=== PATIENT | male | born 1975 | race African-American/Black ===

== ENCOUNTER 2018-03-07 06:13 | Inpatient (IN) | payer OTHER, MEDICAID ==
[~2018-03-07] VITALS: Ht 167.6 cm; Wt 77.0 kg
[2018-03-07 06:13] VITALS: O2SAT 100
[2018-03-07] MEDS ORDERED: MORPHINE SULFATE 4 MG/ML INJ ONE ×2 (06:18→06:23)
[2018-03-07] MEDS ORDERED: SODIUM CHLOR 0.9% 1000 ML INJ 1,000 ML IV SCH (06:35)
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
[2018-03-07 06:44] LABS: AUTOMATED NEUTROPHIL # 4.1 TH/MM3 (1.8-7.7); BASOPHIL % 0.5 % (0.0-2.0); EOSINOPHIL % 0.2 % (0.0-4.0); HEMATOCRIT 38.2 % (39.0-51.0); LYMPH % 35.3 % (9.0-44.0); LYMPHOCYTE # 2.6 TH/MM3 (1.0-4.8); MEAN CELL VOLUME 91.8 FL (80.0-100.0); MEAN CORPUSCULAR HEMOGLOBIN 31.1 PG (27.0-34.0); MEAN CORPUSCULAR HGB CONC 33.9 % (32.0-36.0); MEAN PLATELET VOLUME 9.4 FL (7.0-11.0); MONO % 8.1 % (0.0-8.0); MONOCYTE # 0.6 TH/MM3 (0-0.9); NEUT % 55.9 % (16.0-70.0); PLATELET COUNT 255 TH/MM3 (150-450); RED BLOOD COUNT 4.16 MIL/MM3 (4.50-5.90); RED CELL DISTRIBUTION WIDTH 12.9 % (11.6-17.2); WHITE BLOOD COUNT 7.4 TH/MM3 (4.0-11.0)
[2018-03-07] MEDS ORDERED: MORPHINE SULFATE 4 MG/ML INJ IV PUSH ONE ×2 (06:45)
[2018-03-07] MEDS ORDERED: ACETAMINOPHEN/HYDROcodone 325 MG/5 MG TAB PO PRN ×2 (06:45)
[2018-03-07] MEDS ORDERED: ENALAPRILAT 1.25 MG/ML VIAL IV PUSH PRN (06:45)
[2018-03-07] MEDS ORDERED: MORPHINE SULFATE 4 MG/ML INJ IV PUSH PRN ×2 (06:45→17:15)
[2018-03-07] MEDS ORDERED: ONDANSETRON HCL 4 MG/2 ML VIAL IV PUSH PRN (06:45)
[2018-03-07] MEDS ORDERED: MAGNESIUM HYDROXIDE SUSP 30 ML CUP PO PRN (06:45)
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
[2018-03-07] MEDS ORDERED: IOHEXOL 350 MG/ML 10 ML VIAL (for RAD DIAG) IVCONTRAST ONE (06:52)
[2018-03-07 06:53] LABS: INTERNATIONAL NORMALIZED RATIO 1.1 RATIO; PROTHROMBIN TIME - PATIENT 11.5 SEC (9.8-11.6)
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
[2018-03-07 07:12] VITALS: RESP 20; O2SAT 100
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
[2018-03-07 07:27] VITALS: BP 122/67; PULSE 79; RESP 20; TEMP 98.3; O2SAT 100
[2018-03-07] MEDS ORDERED: CARB100C CHEW ×2 (07:45)
[2018-03-07] MEDS ORDERED: BENZ0.5T PO (07:45)
[2018-03-07] MEDS ORDERED: TRAZ50TA12 PO (07:45)
[2018-03-07] MEDS ORDERED: LURA80 PO (07:45)
[2018-03-07] MEDS ORDERED: LOXA50CA PO ×2 (07:45)
[2018-03-07] MEDS: MULTIVITAMIN INJ 10 ML, THIAMINE INJ 100 MG, FOLIC ACID INJ 1 MG in SODIUM CHLORID 0.9%... IV SCH (09:54)
[2018-03-07] MEDS: PANTOPRAZOLE SODIUM 40 MG VIAL IVP SCH (09:54)
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
[2018-03-07 10:02] VITALS: BP 119/82; PULSE 90; RESP 20; O2SAT 100
[2018-03-07 11:43] VITALS: BP 127/83; PULSE 85; RESP 20; O2SAT 98
[2018-03-07] MEDS ORDERED: LACTATED RINGER'S 1000 ML INJ 1,000 ML IV ONE (12:00)
[2018-03-07] MEDS ORDERED: NEOSTIGMINE 5 MG/5 ML SYRINGE IV PUSH ONE (12:00)
[2018-03-07] MEDS ORDERED: ROCURONIUM INJ 50 MG/5 ML SYRINGE IV PUSH ONE (12:00)
[2018-03-07] MEDS ORDERED: GLYCOPYRROLATE 1 MG/5 ML SYRINGE IV PUSH ONE (12:00)
[2018-03-07] MEDS ORDERED: PROPOFOL 200 MG/20 ML AMP IV ONE (12:00)
[2018-03-07] MEDS ORDERED: SUCCINYLCHOLINE CHLORIDE 200 MG/10 ML VIAL IV ONE (12:00)
[2018-03-07] MEDS ORDERED: LIDOCAINE HCL 1% PF 5 ML SYRINGE OTHER ONE (12:00)
[2018-03-07] MEDS ORDERED: ONDANSETRON HCL 4 MG/2 ML VIAL IV ONE (12:00)
[2018-03-07] MEDS ORDERED: ACETAMINOPHEN 1000 MG/100 ML 100 ML IV ONE (14:22)
[2018-03-07] MEDS ORDERED: KETAMINE HCL 50 MG/5 ML SYRINGE ONE (14:23)
[2018-03-07] MEDS ORDERED: ceFAZolin INJ 1,000 MG VIAL ONE (14:31)
[2018-03-07] MEDS ORDERED: SODIUM CHLOR 0.9% 250 ML INJ 250 ML ONE (14:31)
[2018-03-07] MEDS ORDERED: VANCOMYCIN HCL 1000 MG VIAL ONE (14:31)
[2018-03-07] MEDS ORDERED: GENTAMICIN SULFATE 80 MG/2 ML VIAL ONE (14:31)
[2018-03-07] MEDS ORDERED: MIDAZOLAM HCL 2 MG/2 ML VIAL ONE (15:24)
--- NOTE | 2018-03-07 17:09 | PD.OP ---
cc: Donavon Phoenix MD Operative Report Date of Surgery: Mar 07, 2018 Preoperative Diagnosis: Right tibia fracture, segmental right femur fracture Postoperative Diagnosis: Procedure: Reduction and intramedullary fixation right tibia, reduction and retrograde intramedullary nail fixation right femur Anesthesia: Gen. Surgeon: Donavon Phoenix Division Controller(s): Amari Mantilla PA-C The surgical procedure was assisted by my physician tmd teacher assistant. My P.A. presence was necessary throughout this case for the manipulation and positioning of the surgical extremity. My P.A. was assisting me throughout the duration of this procedure. The skill set of a physician tmd teacher assistant was medically necessary to complete this procedure. During the surgical case the surgical asst was working at the back table and the physician tmd teacher assistant was directly assisting me. Operation and Findings: Implants: ITS [9]mm tibial nail, Biomet 10.5 mm x 420 mm retrograde femoral nail Plan of activity: Toe-touch weightbearing Patient was seen and examined preoperatively. An informed consent was obtained from patient after detailed discussion of risk and benefits. Risks of surgery include bleeding, infection, painful hardware, nonunion, malunion, leg length discrepancy, need for hardware removal, and medical complications associated with anesthesia including blood clots, stroke, heart attack, and were discussed. Operative site was marked. Patient was brought to the operating room placed on or table. Patient received IV antibiotics and was given IV sedation GETA. Operative leg was prepped with alcohol Hibiclens and draped in usual sterile fashion. Timeout procedure was performed Procedure began with reduction of fracture. 2 small incisions were made around the fracture site. Traction was applied. Fracture was reduced. There was comminution of the fracture. The fracture reduced and excellent alignment was achieved. Next a 3 cm incision was made proximal to the patella. Quadriceps tendon was split in line with fibers. Cannulas were placed in the patellofemoral joint to protect the articular surface at all times. A guidepin was placed into the tibia and advanced in the tibial canal. Fluoroscopy was used to confirm appropriate guidepin placement. An opening reamer was used to open the tibial canal. A ball-tipped guidewire was advanced down the tibial canal. Guidepin was passed across the fracture site into the center of the distal tibia. Fluoroscopy confirmed guidepin placement. The nail length was now measured. The fracture was now held in a reduced position and the canal was reamed. The canal was reamed up to appropriate size. The tibial nail was now selected and then attached to the insertion handle. The nail was now placed over the guidepin. Next the nail was fully seated. Using perfect [place] technique 2 distal interlocking screws were placed. Using the insertion handle as a guide 2 proximal interlocking screws were placed. Fluoroscopy confirmed excellent of fracture with well-placed hardware. Incisions and the knee joint were thoroughly irrigated with sterile saline. Fascia was closed with #1 Vicryl, subcutaneous tissues closed with 3-0 Vicryl and skin was closed with neeraj. Attention was now turned towards the right femur. This was a segmental fracture with a supracondylar fracture as well as a proximal shaft fracture. Procedure began with reduction of fracture. Traction was applied. The leg was manipulated to achieve reduction. Good reduction was achieved. Fluoroscopy was used to confirm reduction. A two inch incision was made over the anterior knee. A medial arthrotomy was created. Guidepin was placed into the distal femur and advanced into the femoral canal. Fluoroscopy confirmed appropriate guidepin placement. A opening reamer was placed over the guidepin. A long ball tipped guide pin was now placed down the femoral canal into the center of the proximal femur. The nail length was now measured. Fluoroscopy confirmed appropriate guidepin placement. The nail length was extended beyond the lesser trochanter secondary to the proximal nature of the fracture. Flexible reamers were now passed over the guidepin to ream the intramedullary canal. The Biomet nail was attached to the insertion handle. Nail was now placed over the guidepin into the femoral canal. Fluoroscopy confirmed appropriate nail placement. A small percutaneous incisions were made over the lateral thigh. Cannulas were placed through the insertion handle down to the femur. Using the insertion handle as a guide the distal interlocking screw holes were predrilled and screw lengths were measured. Appropriate length screws was now placed. Next, using perfect [place] technique two proximal interlocking screws were placed. Screw holes were predrilled and screw lengths were measured. Final fluoroscopy revealed well aligned fracture with well-placed hardware. Incision was closed with 0 Vicryl, 3-0 Vicryl and neeraj. Sterile dressings were applied. Patient was awakened and transferred to recovery room. Donavon Phoenix MD Mar 07, 2018 17:09
[2018-03-07] MEDS ORDERED: diphenhydrAMINE HCL 25 MG CAP PO PRN (17:15)
[2018-03-07] MEDS ORDERED: NALOXONE HCL 0.4 MG/ML AMP IV PUSH PRN (17:15)
[2018-03-07] MEDS ORDERED: NURSING INFORMATION XX PRN (17:15)
[2018-03-07] MEDS ORDERED: Post-op Orders (for Pharmacy) XX ONE (17:15)
[2018-03-07] MEDS ORDERED: *MEPERIDINE 25 MG INJ VIAL PERIprocedural Use ONLY ONE (17:43)
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
[2018-03-07 18:45] VITALS: BP 134/85; PULSE 81; RESP 17; TEMP 97.1; O2SAT 98
[2018-03-07] MEDS ORDERED: ceFAZolin 2 GM PREMIX 50 ML IV SCH (19:00)
[2018-03-07] MEDS ORDERED: DO NOT ADM ANY ANTICOAGULANT DRUGS PRN (19:00)
--- NOTE | 2018-03-07 19:38 | RADRPT ---
EXAM DATE/TIME: 03/07/2018 15:50 [facility] COMPARISON: TIBIA/FIBULA RIGHT ( 1 VW), March 07, 2018, 6:14. INDICATIONS : ORIF of the right tibia/fibula. MEDICAL HISTORY : Non-responsive SURGICAL HISTORY : Non-responsive ENCOUNTER: Subsequent ACUITY: 1 day PAIN SCORE: Non-responsive. LOCATION: Right tibia/fibula FINDINGS: 5 coned down AP and lateral views of the right tibia and fibula were obtained and demonstrate placeme nt of intramedullary nohelia transfixing the mid tibial fracture which is in anatomic alignment. The more proximal fibular fracture is again noted with approximately one shaft width of lateral displacement of the distal fibular fragment. CONCLUSION: Status post open rigid internal fixation. Andrade Pavon MD on March 07, 2018 at 19:34 Board Certified Radiologist. This report was verified electronically.
--- NOTE | 2018-03-07 19:40 | RADRPT ---
EXAM DATE/TIME: 03/07/2018 15:50 [facility] COMPARISON: FEMUR RIGHT (1 VW), March 07, 2018, 6:14. INDICATIONS : ORIF of the right femur. MEDICAL HISTORY : Non-responsive SURGICAL HISTORY : Non-responsive ENCOUNTER: Initial ACUITY: 1 day PAIN SCORE: Non-responsive. LOCATION: Right femur FINDINGS: 6 coned-down AP and lateral views of the femur were obtained using a matrix camera and demonstrate pl acement of an intramedullary nohelia transfixing the comminuted proximal to mid femur fracture. The fract ure fragments are in near-anatomic alignment. The nondisplaced distal femur fracture remains in anato rajan alignment. There is adjacent soft tissue prominence. CONCLUSION: Status post open rigid internal fixation. Andrade Pavon MD on March 07, 2018 at 19:35 Board Certified Radiologist. This report was verified electronically.
[2018-03-07] MEDS: CEFAZOLIN INJ 2,000 MG in SODIUM CHLORIDE 0.9% INJ 100 ML IV SCH (23:33)
[2018-03-08 00:30] VITALS: BP 128/77; PULSE 96; RESP 17; TEMP 99.8; O2SAT 97
[2018-03-08] MEDS: ACETAMINOPHEN/HYDROcodone 325 MG/10 MG TAB PO PRN ×6 (02:07→21:03)
[2018-03-08 04:00] LABS: AUTOMATED NEUTROPHIL # 6.1 TH/MM3 (1.8-7.7); BASOPHIL % 0.2 % (0.0-2.0); HEMATOCRIT 27.7 % (39.0-51.0); HEMOGLOBIN 9.8 GM/DL (13.0-17.0); LYMPH % 18.3 % (9.0-44.0); LYMPHOCYTE # 1.5 TH/MM3 (1.0-4.8); MEAN CELL VOLUME 90.7 FL (80.0-100.0); MEAN CORPUSCULAR HGB CONC 35.3 % (32.0-36.0); MEAN PLATELET VOLUME 9.2 FL (7.0-11.0); MONO % 7.7 % (0.0-8.0); MONOCYTE # 0.6 TH/MM3 (0-0.9); NEUT % 73.8 % (16.0-70.0); PLATELET COUNT 170 TH/MM3 (150-450); RED BLOOD COUNT 3.05 MIL/MM3 (4.50-5.90); RED CELL DISTRIBUTION WIDTH 12.5 % (11.6-17.2); WHITE BLOOD COUNT 8.3 TH/MM3 (4.0-11.0)
[2018-03-08 04:24] LABS: ALBUMIN 2.9 GM/DL (3.4-5.0); BICARBONATE 23.8 MEQ/L (21.0-32.0); CALCIUM 7.4 MG/DL (8.5-10.1); CALCIUM-PROTEIN CORRECTED 8.1 MG/DL (8.5-10.1); CREATININE 1.18 MG/DL (0.60-1.30); TOTAL BILIRUBIN ADULT 0.6 MG/DL (0.2-1.0); TOTAL PROTEIN 5.8 GM/DL (6.4-8.2)
[2018-03-08] MEDS: VANCOMYCIN INJ 1,000 MG in SODIUM CHLOR 0.9% 250 ML INJ 250 ML IV SCH ×2 (04:28→15:57)
[2018-03-08 04:30] VITALS: BP 149/78; PULSE 99; RESP 17; TEMP 98.3; O2SAT 100
[2018-03-08] MEDS: LACTATED RINGER'S 1000 ML INJ 1,000 ML IV SCH ×2 (05:33→16:53)
[2018-03-08] MEDS ORDERED: POTASSIUM CHLORIDE 20 MEQ CONTROLLED RELEASE TAB PO ONE (07:45)
[2018-03-08] MEDS: CEFAZOLIN INJ 2,000 MG in SODIUM CHLORIDE 0.9% INJ 100 ML IV SCH ×2 (07:46→14:08)
[2018-03-08] MEDS: SODIUM CHLORIDE 0.9% FLUSH 10 ML FLUSH IV FLUSH PRN ×3 (08:28→15:56)
[2018-03-08] MEDS: CALCIUM/VITAMIN D 250 MG/125 U TAB PO SCH ×3 (08:28→16:51)
[2018-03-08] MEDS: PANTOPRAZOLE SODIUM 40 MG VIAL IVP SCH (08:28)
[2018-03-08] MEDS: FOLIC ACID 1 MG TAB PO SCH (08:28)
[2018-03-08 08:29] VITALS: BP 145/67; PULSE 100; RESP 18; TEMP 99.1; O2SAT 99
[2018-03-08] MEDS: CHOLECALCIFEROL (VIT D3) 1000 UNIT TAB PO SCH (08:29)
[2018-03-08] MEDS: MAGNESIUM HYDROXIDE SUSP 30 ML CUP PO SCH ×2 (08:29→21:19)
[2018-03-08] MEDS: DOCUSATE SODIUM 50 MG/SENNA 8.6 MG TAB PO SCH ×2 (08:29→21:03)
[2018-03-08] MEDS: THIAMINE HCL 100 MG TAB PO SCH (08:29)
[2018-03-08] MEDS: MULTIVITAMIN INJ 10 ML, THIAMINE INJ 100 MG, FOLIC ACID INJ 1 MG in SODIUM CHLORID 0.9%... IV SCH (08:33)
[2018-03-08] MEDS: ERGOCALCIFEROL (VIT D2) 50,000 UNIT CAP PO SCH (08:33)
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
[2018-03-08 11:58] VITALS: BP 126/78; PULSE 102; RESP 19; TEMP 99; O2SAT 100
[2018-03-08] MEDS ORDERED: MAGN30S PO (13:40)
[2018-03-08] MEDS ORDERED: PERI PO (13:40)
[2018-03-08] MEDS ORDERED: WALKER WHEELS/F1 MIS (13:43)
--- NOTE | 2018-03-08 13:53 | HHI.FF ---
Face to Face Verification Diagnosis: (1) Tibia/fibula fracture (2) Femur fracture, right Physical Therapy Order: Evaluate and Treat, Improve ambulation, Strength and gait training Home Health Nursing Order: Medical education Signs/symptoms of disease process Medication education-adverse effect Nursing assessment with vital signs I have seen patient Bladimir Martins on 03/08/18. My clinical findings support the need for the requested home health care services because: Ltd mobility - disease progression Deconditioned w/ increased weakness Limited ability to care for self High risk of falls I certify that my clinical findings support that this patient is homebound because: Post-op weakness Unsteady gait/balance Unsafe to leave home unassisted [id number] bed/chair Unable to use public transportation Ashley Martinez Mar 08, 2018 13:53
[2018-03-08] MEDS: BENZTROPINE MESYLATE 2 MG TAB PO SCH ×2 (14:08→21:03)
[2018-03-08 15:43] VITALS: BP 124/70; PULSE 94; RESP 16; TEMP 99.8; O2SAT 99
[2018-03-08] MEDS: ENOXAPARIN SODIUM 40 MG/0.4 ML SYRINGE SQ SCH (15:56)
[2018-03-08] MEDS ORDERED: LOXAPINE 25 MG CAP PO SCH ×2 (16:00→21:00)
[2018-03-08] MEDS: LOXAPINE 5 MG CAP PO SCH (16:51)
[2018-03-08] MEDS ORDERED: POTASSIUM CHLORIDE 10 MEQ CONTROLLED RELEASE TAB PO ONE (18:00)
[2018-03-08 20:00] VITALS: BP 130/80; PULSE 112; RESP 18; TEMP 99.7; O2SAT 97
[2018-03-08] MEDS: traZODone HCL 50 MG TAB PO SCH (21:03)
[2018-03-08] MEDS: LURASIDONE 80 MG TAB PO SCH (21:05)
--- NOTE | 2018-03-08 21:37 | EKG ---
Date Performed: 03/07/2018 Time Performed: 13:53:02 PTAGE: 89 years EKG: Sinus rhythm NORMAL ECG INTERPRETATION BASED ON A DEFAULT AGE OF 41 YEARS NO PREVIOUS TRACING DOCTOR: Ricky Lucas Interpretating Date/Time 03/08/2018 21:35:17
[2018-03-08] MEDS ORDERED: LOXAPINE 5 MG CAP PO SCH (21:45)
[2018-03-09] VITALS: BP 133/69; PULSE 112; RESP 18; TEMP 99.9; O2SAT 97
[2018-03-09] MEDS: CEFAZOLIN INJ 2,000 MG in SODIUM CHLORIDE 0.9% INJ 100 ML IV SCH ×3 (00:47→10:50)
[2018-03-09] MEDS: VANCOMYCIN INJ 1,000 MG in SODIUM CHLOR 0.9% 250 ML INJ 250 ML IV SCH (03:28)
[2018-03-09] MEDS: ACETAMINOPHEN/HYDROcodone 325 MG/10 MG TAB PO PRN ×5 (05:34→21:46)
[2018-03-09] MEDS: LACTATED RINGER'S 1000 ML INJ 1,000 ML IV SCH (05:35)
[2018-03-09 07:55] VITALS: BP 160/90; PULSE 105; RESP 17; TEMP 98.5; O2SAT 99
[2018-03-09] MEDS: PANTOPRAZOLE SODIUM 40 MG VIAL IVP SCH (08:00)
--- NOTE | 2018-03-09 08:35 | PD.ORT.PN ---
Subjective Subjective Remarks Resting comfortably. No new complaints pain is controlled Objective Vitals Vital Signs Date Time Temp Pulse Resp B/P (MAP) Pulse Ox O2 Delivery O2 Flow Rate FiO2 03/09/18 07:55 98.5 105 17 160/90 (113) 99 03/09/18 00:00 99.9 112 18 133/69 (90) 97 03/08/18 20:00 99.7 112 18 130/80 (97) 97 03/08/18 15:43 99.8 94 16 124/70 (88) 99 03/08/18 11:58 99.0 102 19 126/78 (94) 100 I/O 03/08/18 03/08/18 03/08/18 03/09/18 03/09/18 03/09/18 07:00 15:00 23:00 07:00 15:00 23:00 Intake Total 720 ml 600 ml 240 ml Output Total 825 ml 300 ml 250 ml Balance -105 ml 300 ml -250 ml 240 ml Intake Oral 720 ml 600 ml 240 ml Output Urine Total 825 ml 300 ml 250 ml # Voids 1 3 # Bowel Movements 0 0 Result Diagram: 03/08/18 0335 03/08/18 0335 Imaging Last 24 hours Impressions Pelvis X-Ray 03/07/18614 Signed Impressions: Service Date/Time: Wednesday, March 07, 2018 06:14 - CONCLUSION: No acute pelvic fracture. Onel Xie MD Head CT 03/07/18614 Signed Impressions: Service Date/Time: Wednesday, March 07, 2018 06:31 - CONCLUSION: No acute intracranial disease. Onel Xie MD Chest X-Ray 03/07/18614 Signed Impressions: Service Date/Time: Wednesday, March 07, 2018 06:14 - CONCLUSION: No acute disease. Onel Xie MD Chest CT 03/07/18614 Signed Impressions: Service Date/Time: Wednesday, March 07, 2018 06:31 - CONCLUSION: No acute thoracic injury. Onel Xie MD Cervical Spine CT 03/07/18614 Signed Impressions: Service Date/Time: Wednesday, March 07, 2018 06:31 - CONCLUSION: No fracture or subluxation. Onel Xie MD Abdomen/Pelvis CT 03/07/1815 Signed Impressions: Service Date/Time: Wednesday, March 07, 2018 06:31 - CONCLUSION: No abdominal visceral injury. Onel Xie MD Tibia/Fibula X-Ray 03/07/18 0000 Signed Impressions: Service Date/Time: Wednesday, March 07, 2018 06:14 - CONCLUSION: Tibia and fibular fractures. Onel Xie MD Femur X-Ray 03/07/18 0000 Signed Impressions: Service Date/Time: Wednesday, March 07, 2018 06:14 - CONCLUSION: Proximal femur fracture. Onel Xie MD Objective Remarks Right lower extremity: Clean dry dressings intact in both femur and tibia. Compartments are semisoft. Distally intact sensation with active dorsiflexion plantar flexion of foot. Intact distal pulses noted Assessment & Plan Assessment and Plan Right femur and tibia IM nail fixation POD 2 Nonweightbearing right lower extremity Daily dressing changes Elevation and ice to decrease swelling Case management for placement - homeless Lovenox incentive spirometry Andrade Crabtree Jr. Mar 09, 2018 08:35
[2018-03-09] MEDS: MULTIVITAMIN INJ 10 ML, THIAMINE INJ 100 MG, FOLIC ACID INJ 1 MG in SODIUM CHLORID 0.9%... IV SCH (09:00)
[2018-03-09] MEDS: FOLIC ACID 1 MG TAB PO SCH (09:04)
[2018-03-09] MEDS: BENZTROPINE MESYLATE 2 MG TAB PO SCH ×2 (09:04→21:47)
[2018-03-09] MEDS: MAGNESIUM HYDROXIDE SUSP 30 ML CUP PO SCH ×2 (09:04→21:47)
[2018-03-09] MEDS: DOCUSATE SODIUM 50 MG/SENNA 8.6 MG TAB PO SCH ×2 (09:05→21:47)
[2018-03-09] MEDS: CHOLECALCIFEROL (VIT D3) 1000 UNIT TAB PO SCH (09:05)
[2018-03-09] MEDS: CALCIUM/VITAMIN D 250 MG/125 U TAB PO SCH ×3 (09:05→17:04)
[2018-03-09] MEDS: THIAMINE HCL 100 MG TAB PO SCH (09:05)
[2018-03-09 10:05] LABS: AUTOMATED NEUTROPHIL # 5.9 TH/MM3 (1.8-7.7); BASOPHIL % 0.2 % (0.0-2.0); EOSINOPHIL % 0.1 % (0.0-4.0); HEMATOCRIT 23.9 % (39.0-51.0); HEMOGLOBIN 8.3 GM/DL (13.0-17.0); LYMPH % 17.5 % (9.0-44.0); LYMPHOCYTE # 1.4 TH/MM3 (1.0-4.8); MEAN CELL VOLUME 92.5 FL (80.0-100.0); MEAN CORPUSCULAR HEMOGLOBIN 32.1 PG (27.0-34.0); MEAN CORPUSCULAR HGB CONC 34.7 % (32.0-36.0); MEAN PLATELET VOLUME 9.8 FL (7.0-11.0); MONOCYTE # 0.8 TH/MM3 (0-0.9); NEUT % 72.2 % (16.0-70.0); PLATELET COUNT 142 TH/MM3 (150-450); RED BLOOD COUNT 2.59 MIL/MM3 (4.50-5.90); RED CELL DISTRIBUTION WIDTH 12.9 % (11.6-17.2); WHITE BLOOD COUNT 8.2 TH/MM3 (4.0-11.0)
[2018-03-09 10:15] LABS: BICARBONATE 26.7 MEQ/L (21.0-32.0); CALCIUM 7.9 MG/DL (8.5-10.1); CREATININE 1.01 MG/DL (0.60-1.30)
[2018-03-09 11:34] VITALS: BP 117/67; PULSE 110; RESP 18; TEMP 98.6; O2SAT 97
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
[2018-03-09] MEDS ORDERED: CEPHALEXIN MONOHYDRATE 250 MG CAP PO ONE (13:00)
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
[2018-03-09] MEDS ORDERED: BISACODYL 10 MG SUPP RECTAL ONE (13:30)
[2018-03-09] MEDS: LOXAPINE 5 MG CAP PO SCH (15:35)
[2018-03-09] MEDS: ENOXAPARIN SODIUM 40 MG/0.4 ML SYRINGE SQ SCH (15:40)
[2018-03-09 16:09] VITALS: BP 157/83; PULSE 107; RESP 19; TEMP 98.7; O2SAT 96
[2018-03-09 20:00] VITALS: BP 132/89; PULSE 120; RESP 18; TEMP 99.7; O2SAT 100
[2018-03-09] MEDS ORDERED: LOXAPINE 25 MG CAP PO SCH (21:00)
[2018-03-09] MEDS: FAMOTIDINE 20 MG TAB PO SCH (21:47)
[2018-03-09] MEDS: traZODone HCL 50 MG TAB PO SCH (21:47)
[2018-03-09] MEDS: LURASIDONE 80 MG TAB PO SCH (21:47)
[2018-03-10] VITALS (10 sets, daily range): BP systolic 113–144; BP diastolic 56–88; PULSE 94–111; RESP 16–18; TEMP 98.2–99.8; O2SAT 96–100
[2018-03-10 06:28] LABS: BASOPHIL % 0.4 % (0.0-2.0); EOSINOPHIL % 0.1 % (0.0-4.0); LYMPH % 22.8 % (9.0-44.0); LYMPHOCYTE # 1.7 TH/MM3 (1.0-4.8); MEAN CELL VOLUME 91.9 FL (80.0-100.0); MEAN CORPUSCULAR HEMOGLOBIN 31.5 PG (27.0-34.0); MEAN CORPUSCULAR HGB CONC 34.3 % (32.0-36.0); MEAN PLATELET VOLUME 9.4 FL (7.0-11.0); MONO % 7.4 % (0.0-8.0); MONOCYTE # 0.5 TH/MM3 (0-0.9); NEUT % 69.3 % (16.0-70.0); PLATELET COUNT 143 TH/MM3 (150-450); RED BLOOD COUNT 2.21 MIL/MM3 (4.50-5.90); RED CELL DISTRIBUTION WIDTH 12.5 % (11.6-17.2); WHITE BLOOD COUNT 7.3 TH/MM3 (4.0-11.0)
--- NOTE | 2018-03-10 06:50 | PD.ORT.PN ---
Subjective Subjective Remarks Resting comfortably. No new complaints pain is controlled Objective Vitals Vital Signs Date Time Temp Pulse Resp B/P (MAP) Pulse Ox O2 Delivery O2 Flow Rate FiO2 03/10/18 00:00 99.3 106 18 119/69 (86) 97 03/09/18 20:00 99.7 120 18 132/89 (103) 100 03/09/18 16:09 98.7 107 19 157/83 (107) 96 03/09/18 11:34 98.6 110 18 117/67 (84) 97 03/09/18 07:55 98.5 105 17 160/90 (113) 99 I/O 03/09/18 03/09/18 03/09/18 03/10/18 03/10/18 03/10/18 07:00 15:00 23:00 07:00 15:00 23:00 Intake Total 240 ml 1300 ml 480 ml Output Total 900 ml 800 ml Balance 240 ml 400 ml -320 ml Intake Oral 240 ml 1300 ml 480 ml Output Urine Total 900 ml 800 ml # Voids 3 # Bowel Movements 0 0 0 Result Diagram: 03/09/18 0846 03/09/18 0846 Imaging Last 24 hours Impressions Pelvis X-Ray 03/07/18614 Signed Impressions: Service Date/Time: Wednesday, March 07, 2018 06:14 - CONCLUSION: No acute pelvic fracture. Onel Xie MD Head CT 03/07/18614 Signed Impressions: Service Date/Time: Wednesday, March 07, 2018 06:31 - CONCLUSION: No acute intracranial disease. Onel Xie MD Chest X-Ray 03/07/18614 Signed Impressions: Service Date/Time: Wednesday, March 07, 2018 06:14 - CONCLUSION: No acute disease. Onel Xie MD Chest CT 03/07/18614 Signed Impressions: Service Date/Time: Wednesday, March 07, 2018 06:31 - CONCLUSION: No acute thoracic injury. Onel Xie MD Cervical Spine CT 03/07/18614 Signed Impressions: Service Date/Time: Wednesday, March 07, 2018 06:31 - CONCLUSION: No fracture or subluxation. Onel Xie MD Abdomen/Pelvis CT 03/07/18614 Signed Impressions: Service Date/Time: Wednesday, March 07, 2018 06:31 - CONCLUSION: No abdominal visceral injury. Onel Xie MD Tibia/Fibula X-Ray 03/07/18 0000 Signed Impressions: Service Date/Time: Wednesday, March 07, 2018 06:14 - CONCLUSION: Tibia and fibular fractures. Onel Xie MD Femur X-Ray 03/07/18 0000 Signed Impressions: Service Date/Time: Wednesday, March 07, 2018 06:14 - CONCLUSION: Proximal femur fracture. Onel Xie MD Objective Remarks Right lower extremity: Clean dry dressings intact in both femur and tibia. Compartments are semisoft. Distally intact sensation with active dorsiflexion plantar flexion of foot. Intact distal pulses noted Assessment & Plan Assessment and Plan Right femur and tibia IM nail fixation POD 3 Nonweightbearing right lower extremity Daily dressing changes Elevation and ice to decrease swelling Case management for placement - homeless Lovenox incentive spirometry Andrade Crabtree Jr. Mar 10, 2018 06:50
[2018-03-10 06:52] LABS: BICARBONATE 30.9 MEQ/L (21.0-32.0); CALCIUM 7.8 MG/DL (8.5-10.1); CREATININE 0.99 MG/DL (0.60-1.30)
[2018-03-10 06:59] LABS: HEMATOCRIT 20.3 % (39.0-51.0)
[2018-03-10] MEDS ORDERED: SODIUM CHLOR 0.9% 250 ML INJ 250 ML IV ONE (07:15)
[2018-03-10] MEDS ORDERED: PANTOPRAZOLE SOD 40 MG DELAYED RELEASE TAB PO SCH (08:00)
[2018-03-10] MEDS: DOCUSATE SODIUM 50 MG/SENNA 8.6 MG TAB PO SCH ×2 (08:39→21:51)
[2018-03-10] MEDS: CALCIUM/VITAMIN D 250 MG/125 U TAB PO SCH ×3 (08:39→17:56)
[2018-03-10] MEDS: FOLIC ACID 1 MG TAB PO SCH (08:39)
[2018-03-10] MEDS: BENZTROPINE MESYLATE 2 MG TAB PO SCH ×2 (08:39→21:48)
[2018-03-10] MEDS: FAMOTIDINE 20 MG TAB PO SCH ×2 (08:40→21:48)
[2018-03-10] MEDS: MULTIVITAMIN TAB PO SCH (08:40)
[2018-03-10] MEDS: CHOLECALCIFEROL (VIT D3) 1000 UNIT TAB PO SCH (08:40)
[2018-03-10] MEDS: ACETAMINOPHEN/HYDROcodone 325 MG/10 MG TAB PO PRN ×2 (08:41→18:01)
[2018-03-10] MEDS: MAGNESIUM HYDROXIDE SUSP 30 ML CUP PO SCH ×2 (09:00→21:51)
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
[2018-03-10] MEDS: ENOXAPARIN SODIUM 40 MG/0.4 ML SYRINGE SQ SCH (17:56)
[2018-03-10] MEDS: [UNRECOGNIZED DRUG - REMARK] PO SCH (17:57)
[2018-03-10] MEDS ORDERED: LOXAPINE 50 MG PO SCH (21:00)
[2018-03-10] MEDS: traZODone HCL 50 MG TAB PO SCH (21:48)
[2018-03-10] MEDS: LURASIDONE 80 MG TAB PO SCH (21:48)
[2018-03-10] MEDS: [UNRECOGNIZED DRUG - REMARK] PO SCH (21:50)
[2018-03-11] VITALS: BP 109/66; PULSE 96; RESP 16; TEMP 98.3; O2SAT 98
[2018-03-11 02:01] LABS: HEMATOCRIT 27.6 % (39.0-51.0); HEMOGLOBIN 9.5 GM/DL (13.0-17.0)
[2018-03-11] MEDS: ACETAMINOPHEN/HYDROcodone 325 MG/10 MG TAB PO PRN (05:31)
[2018-03-11 07:47] VITALS: BP 127/71; PULSE 83; RESP 18; TEMP 98.2; O2SAT 99
[2018-03-11] MEDS: CHOLECALCIFEROL (VIT D3) 1000 UNIT TAB PO SCH (09:13)
[2018-03-11] MEDS: FAMOTIDINE 20 MG TAB PO SCH ×2 (09:13→20:41)
[2018-03-11] MEDS: MULTIVITAMIN TAB PO SCH (09:13)
[2018-03-11] MEDS: BENZTROPINE MESYLATE 2 MG TAB PO SCH ×2 (09:13→20:42)
[2018-03-11] MEDS: CALCIUM/VITAMIN D 250 MG/125 U TAB PO SCH ×3 (09:13→17:20)
[2018-03-11] MEDS: FOLIC ACID 1 MG TAB PO SCH (09:13)
[2018-03-11] MEDS: DOCUSATE SODIUM 50 MG/SENNA 8.6 MG TAB PO SCH ×2 (09:13→20:40)
[2018-03-11] MEDS: MAGNESIUM HYDROXIDE SUSP 30 ML CUP PO SCH ×2 (09:14→20:39)
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
[2018-03-11 12:00] VITALS: BP 132/85; PULSE 93; RESP 18; TEMP 97.5; O2SAT 99
[2018-03-11 16:00] VITALS: BP 140/78; PULSE 95; RESP 18; TEMP 98.1; O2SAT 100
[2018-03-11] MEDS: [UNRECOGNIZED DRUG - REMARK] PO SCH (16:00)
[2018-03-11] MEDS: ENOXAPARIN SODIUM 40 MG/0.4 ML SYRINGE SQ SCH (17:20)
[2018-03-11 20:00] VITALS: BP 144/79; PULSE 105; RESP 18; TEMP 99.3; O2SAT 98
[2018-03-11] MEDS: LURASIDONE 80 MG TAB PO SCH (20:41)
[2018-03-11] MEDS: traZODone HCL 50 MG TAB PO SCH (20:41)
[2018-03-11] MEDS: [UNRECOGNIZED DRUG - REMARK] PO SCH (20:52)
[2018-03-12] VITALS: BP 144/82; PULSE 99; RESP 18; TEMP 99.9; O2SAT 97
[2018-03-12 08:00] VITALS: BP 107/57; PULSE 76; RESP 18; TEMP 97.9; O2SAT 99
[2018-03-12] MEDS: BENZTROPINE MESYLATE 2 MG TAB PO SCH ×2 (08:25→20:26)
[2018-03-12] MEDS: FOLIC ACID 1 MG TAB PO SCH (08:25)
[2018-03-12] MEDS: DOCUSATE SODIUM 50 MG/SENNA 8.6 MG TAB PO SCH ×2 (08:26→20:26)
[2018-03-12] MEDS: CHOLECALCIFEROL (VIT D3) 1000 UNIT TAB PO SCH (08:26)
[2018-03-12] MEDS: CALCIUM/VITAMIN D 250 MG/125 U TAB PO SCH ×3 (08:26→18:20)
[2018-03-12] MEDS: MULTIVITAMIN TAB PO SCH (08:26)
[2018-03-12] MEDS: FAMOTIDINE 20 MG TAB PO SCH ×2 (08:26→20:27)
[2018-03-12] MEDS: MAGNESIUM HYDROXIDE SUSP 30 ML CUP PO SCH ×2 (08:28→20:25)
[2018-03-12 11:51] VITALS: BP 131/72; PULSE 97; RESP 18; TEMP 98.1; O2SAT 100
[2018-03-12] MEDS: ENOXAPARIN SODIUM 40 MG/0.4 ML SYRINGE SQ SCH (14:39)
[2018-03-12] MEDS: [UNRECOGNIZED DRUG - REMARK] PO SCH (14:40)
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
[2018-03-12 16:00] VITALS: BP 134/78; PULSE 96; RESP 18; TEMP 97.8; O2SAT 99
[2018-03-12 20:00] VITALS: BP 124/69; PULSE 92; RESP 18; TEMP 98.8; O2SAT 96
[2018-03-12] MEDS: traZODone HCL 50 MG TAB PO SCH (20:26)
[2018-03-12] MEDS: LURASIDONE 80 MG TAB PO SCH (20:26)
[2018-03-12] MEDS: [UNRECOGNIZED DRUG - REMARK] PO SCH (20:35)
[2018-03-13] VITALS: BP 123/68; PULSE 93; RESP 18; TEMP 98.5; O2SAT 99
[2018-03-13 06:17] LABS: BASOPHIL % 0.4 % (0.0-2.0); EOSINOPHIL # 0.1 TH/MM3 (0-0.4); EOSINOPHIL % 0.9 % (0.0-4.0); HEMATOCRIT 28.6 % (39.0-51.0); HEMOGLOBIN 9.8 GM/DL (13.0-17.0); LYMPH % 34.9 % (9.0-44.0); MEAN CELL VOLUME 90.3 FL (80.0-100.0); MEAN CORPUSCULAR HEMOGLOBIN 31.1 PG (27.0-34.0); MEAN CORPUSCULAR HGB CONC 34.4 % (32.0-36.0); MEAN PLATELET VOLUME 8.5 FL (7.0-11.0); MONO % 12.6 % (0.0-8.0); MONOCYTE # 0.7 TH/MM3 (0-0.9); NEUT % 51.2 % (16.0-70.0); PLATELET COUNT 241 TH/MM3 (150-450); RED BLOOD COUNT 3.16 MIL/MM3 (4.50-5.90); RED CELL DISTRIBUTION WIDTH 14.2 % (11.6-17.2); WHITE BLOOD COUNT 5.9 TH/MM3 (4.0-11.0)
[2018-03-13 06:46] LABS: CALCIUM 8.5 MG/DL (8.5-10.1); CREATININE 0.95 MG/DL (0.60-1.30)
[2018-03-13 07:44] VITALS: BP 119/73; PULSE 78; RESP 19; TEMP 98.3; O2SAT 100
[2018-03-13] MEDS: MAGNESIUM HYDROXIDE SUSP 30 ML CUP PO SCH ×2 (08:13→20:50)
[2018-03-13] MEDS: CHOLECALCIFEROL (VIT D3) 1000 UNIT TAB PO SCH (08:13)
[2018-03-13] MEDS: FOLIC ACID 1 MG TAB PO SCH (08:13)
[2018-03-13] MEDS: MULTIVITAMIN TAB PO SCH (08:14)
[2018-03-13] MEDS: DOCUSATE SODIUM 50 MG/SENNA 8.6 MG TAB PO SCH ×2 (08:14→20:50)
[2018-03-13] MEDS: BENZTROPINE MESYLATE 2 MG TAB PO SCH ×2 (08:14→20:50)
[2018-03-13] MEDS: CALCIUM/VITAMIN D 250 MG/125 U TAB PO SCH ×3 (08:14→18:09)
[2018-03-13] MEDS: ACETAMINOPHEN/HYDROcodone 325 MG/10 MG TAB PO PRN ×2 (08:14→20:51)
[2018-03-13] MEDS: FAMOTIDINE 20 MG TAB PO SCH ×2 (08:14→20:50)
[2018-03-13 11:40] VITALS: BP 155/83; PULSE 100; RESP 19; TEMP 97.6; O2SAT 100
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
[2018-03-13 15:29] VITALS: BP 153/75; PULSE 97; RESP 18; TEMP 98; O2SAT 100
[2018-03-13] MEDS: ENOXAPARIN SODIUM 40 MG/0.4 ML SYRINGE SQ SCH (15:29)
[2018-03-13] MEDS: [UNRECOGNIZED DRUG - REMARK] PO SCH (15:29)
[2018-03-13 20:26] VITALS: BP 151/79; PULSE 101; RESP 18; TEMP 97; O2SAT 97
[2018-03-13] MEDS: [UNRECOGNIZED DRUG - REMARK] PO SCH (20:49)
[2018-03-13] MEDS: LURASIDONE 80 MG TAB PO SCH (20:50)
[2018-03-13] MEDS: traZODone HCL 50 MG TAB PO SCH (20:50)
[2018-03-14 00:10] VITALS: BP 139/81; PULSE 96; RESP 18; TEMP 97.6; O2SAT 100
[2018-03-14 08:00] VITALS: BP 131/72; PULSE 98; RESP 17; TEMP 98.3; O2SAT 96
[2018-03-14] MEDS: MAGNESIUM HYDROXIDE SUSP 30 ML CUP PO SCH ×2 (08:44→20:38)
[2018-03-14] MEDS: CHOLECALCIFEROL (VIT D3) 1000 UNIT TAB PO SCH (08:45)
[2018-03-14] MEDS: ACETAMINOPHEN/HYDROcodone 325 MG/10 MG TAB PO PRN ×3 (08:45→17:23)
[2018-03-14] MEDS: BENZTROPINE MESYLATE 2 MG TAB PO SCH ×2 (08:45→20:38)
[2018-03-14] MEDS: DOCUSATE SODIUM 50 MG/SENNA 8.6 MG TAB PO SCH ×2 (08:45→20:39)
[2018-03-14] MEDS: FOLIC ACID 1 MG TAB PO SCH (08:45)
[2018-03-14] MEDS: CALCIUM/VITAMIN D 250 MG/125 U TAB PO SCH ×3 (08:45→18:00)
[2018-03-14] MEDS: FAMOTIDINE 20 MG TAB PO SCH ×2 (08:45→20:38)
[2018-03-14] MEDS: MULTIVITAMIN TAB PO SCH (08:45)
[2018-03-14] MEDS: SODIUM CHLORIDE 0.9% FLUSH 10 ML FLUSH IV FLUSH PRN (08:45)
[2018-03-14 12:06] VITALS: BP 123/68; PULSE 101; RESP 17; TEMP 98.4; O2SAT 100
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
[2018-03-14] MEDS: [UNRECOGNIZED DRUG - REMARK] PO SCH (16:00)
[2018-03-14] MEDS: ENOXAPARIN SODIUM 40 MG/0.4 ML SYRINGE SQ SCH (17:24)
[2018-03-14] MEDS: ERGOCALCIFEROL (VIT D2) 50,000 UNIT CAP PO SCH (17:24)
[2018-03-14 17:25] VITALS: BP 127/88; PULSE 101; RESP 17; TEMP 98.2; O2SAT 100
[2018-03-14 20:00] VITALS: BP 136/87; PULSE 105; RESP 18; TEMP 98.8; O2SAT 100
[2018-03-14] MEDS: LURASIDONE 80 MG TAB PO SCH (20:38)
[2018-03-14] MEDS: traZODone HCL 50 MG TAB PO SCH (20:39)
[2018-03-14] MEDS: [UNRECOGNIZED DRUG - REMARK] PO SCH (20:39)
[2018-03-15] VITALS: BP 133/69; PULSE 102; RESP 18; TEMP 98.4; O2SAT 98
--- NOTE | 2018-03-15 06:40 | PD.ORT.PN ---
Subjective Subjective Remarks Resting comfortably. No new complaints pain is controlled Objective Vitals Vital Signs Date Time Temp Pulse Resp B/P (MAP) Pulse Ox O2 Delivery O2 Flow Rate FiO2 03/15/18 00:00 98.4 102 18 133/69 (90) 98 03/14/18 21:33 Room Air 03/14/18 20:00 98.8 105 18 136/87 (103) 100 03/14/18 17:25 98.2 101 17 127/88 (101) 100 03/14/18 12:06 98.4 101 17 123/68 (86) 100 03/14/18 08:00 98.3 98 17 131/72 (91) 96 I/O 03/14/18 03/14/18 03/14/18 03/15/18 03/15/18 03/15/18 07:00 15:00 23:00 07:00 15:00 23:00 Intake Total 550 ml Output Total 600 ml Balance -50 ml Intake Oral 550 ml Output Urine Total 600 ml # Bowel Movements 2 Result Diagram: 03/13/18 0555 03/13/18 0555 Imaging Last 24 hours Impressions Pelvis X-Ray 03/07/18614 Signed Impressions: Service Date/Time: Wednesday, March 07, 2018 06:14 - CONCLUSION: No acute pelvic fracture. Onel Xie MD Head CT 03/07/18614 Signed Impressions: Service Date/Time: Wednesday, March 07, 2018 06:31 - CONCLUSION: No acute intracranial disease. Onel Xie MD Chest X-Ray 03/07/18614 Signed Impressions: Service Date/Time: Wednesday, March 07, 2018 06:14 - CONCLUSION: No acute disease. Onel Xie MD Chest CT 03/07/18614 Signed Impressions: Service Date/Time: Wednesday, March 07, 2018 06:31 - CONCLUSION: No acute thoracic injury. Onel Xie MD Cervical Spine CT 03/07/18614 Signed Impressions: Service Date/Time: Wednesday, March 07, 2018 06:31 - CONCLUSION: No fracture or subluxation. Onel Xie MD Abdomen/Pelvis CT 03/07/18614 Signed Impressions: Service Date/Time: Wednesday, March 07, 2018 06:31 - CONCLUSION: No abdominal visceral injury. Onel Xie MD Tibia/Fibula X-Ray 03/07/18 0000 Signed Impressions: Service Date/Time: Wednesday, March 07, 2018 06:14 - CONCLUSION: Tibia and fibular fractures. Onel Xie MD Femur X-Ray 03/07/18 0000 Signed Impressions: Service Date/Time: Wednesday, March 07, 2018 06:14 - CONCLUSION: Proximal femur fracture. Onel Xie MD Objective Remarks Right lower extremity: Clean dry dressings intact in both femur and tibia. Compartments are semisoft. Distally intact sensation with active dorsiflexion plantar flexion of foot. Intact distal pulses noted Assessment & Plan Assessment and Plan Right femur and tibia IM nail fixation 03/07 - POD 8 Nonweightbearing right lower extremity Daily dressing changes Elevation and ice to decrease swelling Case management for placement - homeless Lovenox incentive spirometry Andrade Crabtree Jr. Mar 15, 2018 06:40
[2018-03-15 07:53] VITALS: BP 129/67; PULSE 94; RESP 18; TEMP 98.5; O2SAT 99
[2018-03-15] MEDS: FAMOTIDINE 20 MG TAB PO SCH ×2 (08:32→22:17)
[2018-03-15] MEDS: BENZTROPINE MESYLATE 2 MG TAB PO SCH ×2 (08:32→22:16)
[2018-03-15] MEDS: MULTIVITAMIN TAB PO SCH (08:32)
[2018-03-15] MEDS: ACETAMINOPHEN/HYDROcodone 325 MG/10 MG TAB PO PRN ×2 (08:32→15:32)
[2018-03-15] MEDS: CHOLECALCIFEROL (VIT D3) 1000 UNIT TAB PO SCH (08:32)
[2018-03-15] MEDS: CALCIUM/VITAMIN D 250 MG/125 U TAB PO SCH ×3 (08:32→18:03)
[2018-03-15] MEDS: FOLIC ACID 1 MG TAB PO SCH (08:33)
[2018-03-15] MEDS: DOCUSATE SODIUM 50 MG/SENNA 8.6 MG TAB PO SCH ×2 (08:33→22:17)
[2018-03-15] MEDS: MAGNESIUM HYDROXIDE SUSP 30 ML CUP PO SCH ×2 (08:33→22:16)
[2018-03-15 11:53] VITALS: BP 141/79; PULSE 108; RESP 18; TEMP 97.6; O2SAT 99
[2018-03-15 16:00] VITALS: BP 133/69; PULSE 96; RESP 18; TEMP 97.8; O2SAT 99
[2018-03-15] MEDS: [UNRECOGNIZED DRUG - REMARK] PO SCH (16:00)
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
[2018-03-15] MEDS: ENOXAPARIN SODIUM 40 MG/0.4 ML SYRINGE SQ SCH (18:03)
[2018-03-15 20:00] VITALS: BP 138/63; PULSE 105; RESP 18; TEMP 98.1; O2SAT 98
[2018-03-15] MEDS: [UNRECOGNIZED DRUG - REMARK] PO SCH (21:00)
[2018-03-15] MEDS: traZODone HCL 50 MG TAB PO SCH (22:16)
[2018-03-15] MEDS: LURASIDONE 80 MG TAB PO SCH (22:16)
[2018-03-16] VITALS: BP 169/75; PULSE 107; RESP 18; TEMP 98.4; O2SAT 99
[2018-03-16] MEDS ORDERED: HALOPERIDOL LACTATE 5 MG/ML AMP IV PRN (00:45)
[2018-03-16] MEDS: SODIUM CHLORIDE 0.9% FLUSH 10 ML FLUSH IV FLUSH PRN (01:26)
[2018-03-16 08:00] VITALS: BP 129/69; PULSE 88; RESP 19; TEMP 98.6; O2SAT 99
[2018-03-16] MEDS: FOLIC ACID 1 MG TAB PO SCH (09:07)
[2018-03-16] MEDS: MULTIVITAMIN TAB PO SCH (09:07)
[2018-03-16] MEDS: CALCIUM/VITAMIN D 250 MG/125 U TAB PO SCH ×3 (09:07→18:00)
[2018-03-16] MEDS: FAMOTIDINE 20 MG TAB PO SCH ×2 (09:07→21:12)
[2018-03-16] MEDS: DOCUSATE SODIUM 50 MG/SENNA 8.6 MG TAB PO SCH ×2 (09:07→21:11)
[2018-03-16] MEDS: CHOLECALCIFEROL (VIT D3) 1000 UNIT TAB PO SCH (09:07)
[2018-03-16] MEDS: BENZTROPINE MESYLATE 2 MG TAB PO SCH ×2 (09:07→21:11)
[2018-03-16] MEDS: MAGNESIUM HYDROXIDE SUSP 30 ML CUP PO SCH ×2 (09:12→21:05)
[2018-03-16 11:43] VITALS: BP 134/81; PULSE 100; RESP 19; TEMP 97.1; O2SAT 99
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
[2018-03-16 15:41] VITALS: BP 128/73; PULSE 93; RESP 18; TEMP 98.5; O2SAT 100
[2018-03-16] MEDS: [UNRECOGNIZED DRUG - REMARK] PO SCH (16:00)
[2018-03-16] MEDS: ENOXAPARIN SODIUM 40 MG/0.4 ML SYRINGE SQ SCH (17:49)
[2018-03-16 20:00] VITALS: BP 137/72; PULSE 98; RESP 18; TEMP 99.5; O2SAT 100
[2018-03-16] MEDS: [UNRECOGNIZED DRUG - REMARK] PO SCH (21:00)
[2018-03-16] MEDS: LURASIDONE 80 MG TAB PO SCH (21:11)
[2018-03-16] MEDS: traZODone HCL 50 MG TAB PO SCH (21:12)
[2018-03-16] MEDS ORDERED: LOXAPINE 50 MG PO ONE (21:30)
[2018-03-17] VITALS: BP 121/63; PULSE 89; RESP 18; TEMP 98.3; O2SAT 96
[2018-03-17 08:00] VITALS: BP 132/73; PULSE 96; RESP 16; TEMP 98; O2SAT 98
[2018-03-17] MEDS: SODIUM CHLORIDE 0.9% FLUSH 10 ML FLUSH IV FLUSH PRN (08:32)
[2018-03-17] MEDS: CALCIUM/VITAMIN D 250 MG/125 U TAB PO SCH ×3 (08:32→18:00)
[2018-03-17] MEDS: DOCUSATE SODIUM 50 MG/SENNA 8.6 MG TAB PO SCH ×2 (08:32→21:00)
[2018-03-17] MEDS: BENZTROPINE MESYLATE 2 MG TAB PO SCH ×2 (08:33→21:18)
[2018-03-17] MEDS: FAMOTIDINE 20 MG TAB PO SCH ×2 (08:33→21:18)
[2018-03-17] MEDS: MULTIVITAMIN TAB PO SCH (08:33)
[2018-03-17] MEDS: CHOLECALCIFEROL (VIT D3) 1000 UNIT TAB PO SCH (08:33)
[2018-03-17] MEDS: FOLIC ACID 1 MG TAB PO SCH (08:33)
[2018-03-17] MEDS: MAGNESIUM HYDROXIDE SUSP 30 ML CUP PO SCH ×2 (08:34→21:00)
[2018-03-17 12:00] VITALS: BP 145/75; PULSE 92; RESP 16; TEMP 98; O2SAT 100
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
[2018-03-17 16:00] VITALS: BP 136/81; RESP 16; TEMP 98; O2SAT 93
[2018-03-17] MEDS: [UNRECOGNIZED DRUG - REMARK] PO SCH (16:00)
[2018-03-17] MEDS: ENOXAPARIN SODIUM 40 MG/0.4 ML SYRINGE SQ SCH (16:35)
[2018-03-17 20:00] VITALS: BP 133/72; PULSE 95; RESP 17; TEMP 99.5; O2SAT 100
[2018-03-17] MEDS: traZODone HCL 50 MG TAB PO SCH (21:18)
[2018-03-17] MEDS: LURASIDONE 80 MG TAB PO SCH (21:19)
[2018-03-17] MEDS: [UNRECOGNIZED DRUG - REMARK] PO SCH (21:21)
[2018-03-18 00:16] VITALS: BP 125/75; PULSE 103; RESP 18; TEMP 98.5; O2SAT 99
[2018-03-18 08:00] VITALS: BP 130/62; PULSE 98; RESP 16; TEMP 98.3; O2SAT 98
[2018-03-18] MEDS: MAGNESIUM HYDROXIDE SUSP 30 ML CUP PO SCH ×2 (09:00→21:00)
[2018-03-18] MEDS: BENZTROPINE MESYLATE 2 MG TAB PO SCH ×2 (09:23→21:00)
[2018-03-18] MEDS: FOLIC ACID 1 MG TAB PO SCH (09:23)
[2018-03-18] MEDS: CHOLECALCIFEROL (VIT D3) 1000 UNIT TAB PO SCH (09:23)
[2018-03-18] MEDS: MULTIVITAMIN TAB PO SCH (09:23)
[2018-03-18] MEDS: DOCUSATE SODIUM 50 MG/SENNA 8.6 MG TAB PO SCH ×2 (09:24→21:00)
[2018-03-18] MEDS: FAMOTIDINE 20 MG TAB PO SCH ×2 (09:24→21:00)
[2018-03-18] MEDS: CALCIUM/VITAMIN D 250 MG/125 U TAB PO SCH ×3 (09:25→18:00)
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
[2018-03-18] MEDS: [UNRECOGNIZED DRUG - REMARK] PO SCH (16:25)
[2018-03-18] MEDS: ENOXAPARIN SODIUM 40 MG/0.4 ML SYRINGE SQ SCH (16:25)
[2018-03-18 19:45] VITALS: BP 139/68; PULSE 118; RESP 18; TEMP 99.3; O2SAT 97
[2018-03-18] MEDS: LURASIDONE 80 MG TAB PO SCH (21:00)
[2018-03-18] MEDS: traZODone HCL 50 MG TAB PO SCH (21:00)
[2018-03-18] MEDS: [UNRECOGNIZED DRUG - REMARK] PO SCH (21:01)
[2018-03-19 01:24] VITALS: BP 127/71; PULSE 92; RESP 18; TEMP 97.8; O2SAT 100
[2018-03-19 08:00] VITALS: BP 125/66; PULSE 94; RESP 16; TEMP 97.9; O2SAT 98
[2018-03-19] MEDS: FOLIC ACID 1 MG TAB PO SCH (08:43)
[2018-03-19] MEDS: FAMOTIDINE 20 MG TAB PO SCH ×2 (08:43→20:39)
[2018-03-19] MEDS: MAGNESIUM HYDROXIDE SUSP 30 ML CUP PO SCH ×2 (08:43→20:39)
[2018-03-19] MEDS: BENZTROPINE MESYLATE 2 MG TAB PO SCH ×2 (08:44→20:39)
[2018-03-19] MEDS: MULTIVITAMIN TAB PO SCH (08:45)
[2018-03-19] MEDS: CHOLECALCIFEROL (VIT D3) 1000 UNIT TAB PO SCH (08:45)
[2018-03-19] MEDS: DOCUSATE SODIUM 50 MG/SENNA 8.6 MG TAB PO SCH ×2 (08:45→20:39)
[2018-03-19] MEDS: CALCIUM/VITAMIN D 250 MG/125 U TAB PO SCH ×3 (08:45→16:49)
[2018-03-19 12:00] VITALS: BP 137/68; PULSE 92; RESP 16; TEMP 98; O2SAT 100
[2018-03-19] MEDS: ENOXAPARIN SODIUM 40 MG/0.4 ML SYRINGE SQ SCH (14:55)
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
[2018-03-19] MEDS: [UNRECOGNIZED DRUG - REMARK] PO SCH (16:49)
[2018-03-19 19:00] VITALS: BP 135/72; PULSE 94; RESP 16; TEMP 98; O2SAT 99
[2018-03-19] MEDS: traZODone HCL 50 MG TAB PO SCH (20:39)
[2018-03-19] MEDS: LURASIDONE 80 MG TAB PO SCH (20:39)
[2018-03-19] MEDS: [UNRECOGNIZED DRUG - REMARK] PO SCH (20:39)
[2018-03-19] MEDS: ACETAMINOPHEN/HYDROcodone 325 MG/10 MG TAB PO PRN (22:23)
[2018-03-20 00:14] VITALS: BP 112/55; PULSE 110; RESP 17; TEMP 99.4; O2SAT 99
[2018-03-20 08:00] VITALS: BP 125/64; PULSE 92; RESP 19; TEMP 98.5; O2SAT 100
[2018-03-20] MEDS: BENZTROPINE MESYLATE 2 MG TAB PO SCH ×2 (08:59→20:41)
[2018-03-20] MEDS: CHOLECALCIFEROL (VIT D3) 1000 UNIT TAB PO SCH (08:59)
[2018-03-20] MEDS: FOLIC ACID 1 MG TAB PO SCH (08:59)
[2018-03-20] MEDS: MULTIVITAMIN TAB PO SCH (08:59)
[2018-03-20] MEDS: MAGNESIUM HYDROXIDE SUSP 30 ML CUP PO SCH ×2 (09:00→20:40)
[2018-03-20] MEDS: FAMOTIDINE 20 MG TAB PO SCH ×2 (09:00→20:42)
[2018-03-20] MEDS: DOCUSATE SODIUM 50 MG/SENNA 8.6 MG TAB PO SCH ×2 (09:00→20:41)
[2018-03-20] MEDS: ACETAMINOPHEN/HYDROcodone 325 MG/10 MG TAB PO PRN ×2 (09:00→16:05)
[2018-03-20] MEDS: CALCIUM/VITAMIN D 250 MG/125 U TAB PO SCH ×3 (09:00→16:06)
[2018-03-20 12:00] VITALS: BP 130/72; PULSE 88; RESP 18; TEMP 98.3; O2SAT 99
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
[2018-03-20 16:00] VITALS: BP 136/71; PULSE 93; RESP 19; TEMP 98.9; O2SAT 100
[2018-03-20] MEDS: ENOXAPARIN SODIUM 40 MG/0.4 ML SYRINGE SQ SCH (16:05)
[2018-03-20] MEDS: [UNRECOGNIZED DRUG - REMARK] PO SCH (16:15)
[2018-03-20] MEDS: traZODone HCL 50 MG TAB PO SCH (20:41)
[2018-03-20] MEDS: LURASIDONE 80 MG TAB PO SCH (20:42)
[2018-03-20] MEDS: [UNRECOGNIZED DRUG - REMARK] PO SCH (21:24)
[2018-03-20 22:15] VITALS: BP 140/79; PULSE 118; RESP 16; TEMP 97.6; O2SAT 95
[2018-03-21 02:14] VITALS: BP 105/52; PULSE 80; RESP 16; TEMP 98; O2SAT 96
[2018-03-21 05:28] VITALS: BP 111/56; PULSE 76; RESP 16; O2SAT 99
--- NOTE | 2018-03-21 06:51 | PD.ORT.PN ---
Subjective Subjective Remarks POD 14 s/p IMN right femur and tibia doing well. pain controlled. ambulating with crutches and wheelchair Objective Vitals Vital Signs Date Time Temp Pulse Resp B/P (MAP) Pulse Ox O2 Delivery O2 Flow Rate FiO2 03/21/18 05:28 76 16 111/56 (74) 99 03/21/18 02:14 98.0 80 16 105/52 (69) 96 03/20/18 22:15 97.6 118 16 140/79 (99) 95 03/20/18 16:00 98.9 93 19 136/71 (92) 100 03/20/18 12:00 98.3 88 18 130/72 (91) 99 03/20/18 08:00 98.5 92 19 125/64 (84) 100 I/O 03/20/18 03/20/18 03/20/18 03/21/18 03/21/18 03/21/18 07:00 15:00 23:00 07:00 15:00 23:00 # Voids 5 # Bowel Movements 3 Imaging Last 24 hours Impressions Pelvis X-Ray 03/07/18614 Signed Impressions: Service Date/Time: Wednesday, March 07, 2018 06:14 - CONCLUSION: No acute pelvic fracture. Onel Xie MD Head CT 03/07/18614 Signed Impressions: Service Date/Time: Wednesday, March 07, 2018 06:31 - CONCLUSION: No acute intracranial disease. Onel Xie MD Chest X-Ray 03/07/18614 Signed Impressions: Service Date/Time: Wednesday, March 07, 2018 06:14 - CONCLUSION: No acute disease. Onel Xie MD Chest CT 03/07/18614 Signed Impressions: Service Date/Time: Wednesday, March 07, 2018 06:31 - CONCLUSION: No acute thoracic injury. Onel Xie MD Cervical Spine CT 03/07/18614 Signed Impressions: Service Date/Time: Wednesday, March 07, 2018 06:31 - CONCLUSION: No fracture or subluxation. Onel Xie MD Abdomen/Pelvis CT 03/07/18614 Signed Impressions: Service Date/Time: Wednesday, March 07, 2018 06:31 - CONCLUSION: No abdominal visceral injury. Onel Xie MD Tibia/Fibula X-Ray 03/07/18 0000 Signed Impressions: Service Date/Time: Wednesday, March 07, 2018 06:14 - CONCLUSION: Tibia and fibular fractures. Onel Xie MD Femur X-Ray 03/07/18 0000 Signed Impressions: Service Date/Time: Wednesday, March 07, 2018 06:14 - CONCLUSION: Proximal femur fracture. Onel Xie MD Objective Remarks Right lower extremity: Clean dry dressings intact in both femur and tibia. Compartments are semisoft. Distally intact sensation with active dorsiflexion plantar flexion of foot. Intact distal pulses noted Assessment & Plan Assessment and Plan 1) Right femur and tibia IM nail fixation 03/07 - POD 14 Nonweightbearing right lower extremity Daily dressing changes Elevation and ice to decrease swelling Case management for placement - homeless Lovenox incentive spirometry DC neeraj today XR today of femur and tibia Amari Mantilla/Station Superintendent EMELINA Mar 21, 2018 06:51
[2018-03-21 08:00] VITALS: BP 122/74; PULSE 90; RESP 18; TEMP 97.5; O2SAT 97
[2018-03-21] MEDS: DOCUSATE SODIUM 50 MG/SENNA 8.6 MG TAB PO SCH ×2 (08:32→20:39)
[2018-03-21] MEDS: MULTIVITAMIN TAB PO SCH (08:32)
[2018-03-21] MEDS: CALCIUM/VITAMIN D 250 MG/125 U TAB PO SCH ×3 (08:33→16:38)
[2018-03-21] MEDS: ACETAMINOPHEN/HYDROcodone 325 MG/5 MG TAB PO PRN ×2 (08:33→16:38)
[2018-03-21] MEDS: BENZTROPINE MESYLATE 2 MG TAB PO SCH ×2 (08:33→20:40)
[2018-03-21] MEDS: FOLIC ACID 1 MG TAB PO SCH (08:33)
[2018-03-21] MEDS: CHOLECALCIFEROL (VIT D3) 1000 UNIT TAB PO SCH (08:33)
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
[2018-03-21 12:00] VITALS: BP 146/80; PULSE 96; RESP 18; TEMP 97.8; O2SAT 100
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
[2018-03-21 16:00] VITALS: BP 132/69; PULSE 86; RESP 18; TEMP 97.2; O2SAT 100
[2018-03-21] MEDS: ERGOCALCIFEROL (VIT D2) 50,000 UNIT CAP PO SCH (16:37)
[2018-03-21] MEDS: ENOXAPARIN SODIUM 40 MG/0.4 ML SYRINGE SQ SCH (16:38)
[2018-03-21] MEDS: [UNRECOGNIZED DRUG - REMARK] PO SCH (16:41)
[2018-03-21 20:00] VITALS: BP 126/74; PULSE 100; RESP 18; TEMP 98.6; O2SAT 98
[2018-03-21] MEDS: LURASIDONE 80 MG TAB PO SCH (20:39)
[2018-03-21] MEDS: traZODone HCL 50 MG TAB PO SCH (20:39)
[2018-03-21] MEDS: [UNRECOGNIZED DRUG - REMARK] PO SCH (20:52)
[2018-03-22] VITALS: BP 117/64; PULSE 97; RESP 18; TEMP 98.2; O2SAT 99
[2018-03-22 08:00] VITALS: BP 125/78; PULSE 102; RESP 18; TEMP 97.7; O2SAT 100
[2018-03-22] MEDS: DOCUSATE SODIUM 50 MG/SENNA 8.6 MG TAB PO SCH ×2 (09:00→20:15)
[2018-03-22] MEDS: BENZTROPINE MESYLATE 2 MG TAB PO SCH ×2 (09:06→20:14)
[2018-03-22] MEDS: FOLIC ACID 1 MG TAB PO SCH (09:06)
[2018-03-22] MEDS: MULTIVITAMIN TAB PO SCH (09:06)
[2018-03-22] MEDS: CHOLECALCIFEROL (VIT D3) 1000 UNIT TAB PO SCH (09:07)
[2018-03-22] MEDS: CALCIUM/VITAMIN D 250 MG/125 U TAB PO SCH ×3 (09:07→17:28)
[2018-03-22] MEDS ORDERED: HYDR-3516 PO (11:54)
[2018-03-22 12:00] VITALS: BP 137/73; PULSE 101; RESP 18; TEMP 97.9; O2SAT 100
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
[2018-03-22] MEDS: [UNRECOGNIZED DRUG - REMARK] PO SCH (15:50)
[2018-03-22] MEDS: ENOXAPARIN SODIUM 40 MG/0.4 ML SYRINGE SQ SCH (15:50)
[2018-03-22] MEDS: ACETAMINOPHEN/HYDROcodone 325 MG/5 MG TAB PO PRN (15:50)
[2018-03-22 16:00] VITALS: BP 144/82; PULSE 95; RESP 18; TEMP 98.2; O2SAT 99
[2018-03-22 19:48] VITALS: BP 131/68; PULSE 108; RESP 16; TEMP 98.7; O2SAT 98
[2018-03-22] MEDS: LURASIDONE 80 MG TAB PO SCH (20:14)
[2018-03-22] MEDS: traZODone HCL 50 MG TAB PO SCH (20:14)
[2018-03-22] MEDS: [UNRECOGNIZED DRUG - REMARK] PO SCH (20:15)
[2018-03-23 00:58] VITALS: BP 102/60; PULSE 92; RESP 16; TEMP 98.2; O2SAT 93
[2018-03-23 08:00] VITALS: BP 126/70; PULSE 91; RESP 16; TEMP 98.2; O2SAT 99
[2018-03-23] MEDS: MULTIVITAMIN TAB PO SCH (08:08)
[2018-03-23] MEDS: DOCUSATE SODIUM 50 MG/SENNA 8.6 MG TAB PO SCH (08:08)
[2018-03-23] MEDS: CALCIUM/VITAMIN D 250 MG/125 U TAB PO SCH ×3 (08:08→17:32)
[2018-03-23] MEDS: FOLIC ACID 1 MG TAB PO SCH (08:08)
[2018-03-23] MEDS: CHOLECALCIFEROL (VIT D3) 1000 UNIT TAB PO SCH (08:08)
[2018-03-23] MEDS: BENZTROPINE MESYLATE 2 MG TAB PO SCH (08:09)
[2018-03-23] MEDS: ACETAMINOPHEN/HYDROcodone 325 MG/5 MG TAB PO PRN ×2 (08:14→17:48)
[2018-03-23 12:00] VITALS: BP 136/69; PULSE 94; RESP 16; TEMP 98.2; O2SAT 97
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
[2018-03-23] MEDS: [UNRECOGNIZED DRUG - REMARK] PO SCH (16:00)
[2018-03-23] MEDS: ENOXAPARIN SODIUM 40 MG/0.4 ML SYRINGE SQ SCH (16:05)
[2018-03-23 18:51] VITALS: RESP 18
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
== END 2018-03-23 19:11 | disposition home or self-care (01) | DRG 481 ==
LOC: NEPI 06:13 → NEDA 06:46 → EDBD 06:46 → NEDA 06:49 → N06A 18:15
PROVIDERS: ADMIT Surgery; ATTEND Surgery
PROC: 0QSG06Z Reposition Right Tibia with Intramedullary Internal Fixation Device, Open Approach (ICD-10-PCS; 2018-03-07)
PROC: 0QS806Z Reposition Right Femoral Shaft with Intramedullary Internal Fixation Device, Open Approach (ICD-10-PCS; principal; 2018-03-07 14:42)
PROC: 30233N1 Transfusion of Nonautologous Red Blood Cells into Peripheral Vein, Percutaneous Approach (ICD-10-PCS; 2018-03-10)
DX: S72.361 Displaced segmental fracture of shaft of right femur (principal); S82.251A Displaced comminuted fracture of shaft of right tibia, initial encounter for closed fracture; S82.401A Unspecified fracture of shaft of right fibula, initial encounter for closed fracture; F31.9 Bipolar disorder, unspecified; F20.9 Schizophrenia, unspecified; F17.210 Nicotine dependence, cigarettes, uncomplicated; D50.0 Iron deficiency anemia secondary to blood loss (chronic); Y93.55 Activity, bike riding; V13.4XXA Pedal cycle driver injured in collision with car, pick-up truck or van in traffic accident, initial encounter
CPT/HCPCS: 36430; 70450; 71045; 71260; 72125; 72170; 73551; 73552; 73590; 74177; 76000; 80048; 80053; 85014; 85018; 85025; 85610; 85730; 86850; 86900; 86901; 86920; 90471; 93005; 94150; 96374; 96375; 99291; C1713; C9113; E0113; G0390; J0131; J0330; J0690; J1580; J1630; J1650; J2175; J2250; J2270; J2405; J2710; J3010; J3370; J3411; J7030; J7040; J7050; J7120; P9016; Q9967